=== PATIENT | male | born 1960 | race American Indian/Alaskan Native ===

== ENCOUNTER 2022-04-01 12:11 | Day surgery (SDC) | payer OTHER ==
[~2022-04-01] VITALS: Ht 177.8 cm; Wt 115.0 kg
[~2022-04-01 12:11] MED LIST: AMOCLA875; HYDACE10B; NAPR500 PO; SULTRIDS
== END 2022-04-01 14:11 | disposition home or self-care (01) ==
LOC: ORSCSDS 12:11
PROVIDERS: Surgery
PROC: 0DJD8ZZ Inspection of Lower Intestinal Tract, Via Natural or Artificial Opening Endoscopic (ICD-10-PCS; principal; 2022-04-01 13:30)
DX: Z12.11 Encounter for screening for malignant neoplasm of colon (principal); Z86.010 Personal history of colon polyps; K57.30 Diverticulosis of large intestine without perforation or abscess without bleeding; K21.9 Gastro-esophageal reflux disease without esophagitis; E66.9 Obesity, unspecified; Z68.37 Body mass index [BMI] 37.0-37.9, adult; Z79.899 Other long term (current) drug therapy
CPT/HCPCS: J2704; J7120